=== PATIENT | female | born 1995 | race Caucasian/White ===

== ENCOUNTER 2018-07-02 11:10 | Day surgery (SDC) | payer BC ==
[~2018-07-02 11:10] MED LIST: CEFAZOLIN 2 GM-D5W BAG** 2 GM/50 ML ML IV ONE; Lactated Ringers 1,000 ML IV ONE; Lactated Ringers 1,000 ML IV SCH; Sensorcaine 0.25% 10 ML ONE
[2018-07-02] MEDS ORDERED: SUBLIMAZE 100 MCG/2 ML IV ONE (11:11)
[2018-07-02] MEDS ORDERED: Versed 2 MG/2 ML Injection IV ONE (11:11)
[2018-07-02] MEDS ORDERED: DIPRIVAN 200 MG/20 ML IV ONE (11:11)
[2018-07-02] MEDS ORDERED: TORAdol 30 mg Injection ONE (17:03)
[2018-07-02 18:05] VITALS: O2SAT 98
[2018-07-02 18:06] VITALS: BP 127/71; PULSE 65
--- NOTE | 2018-07-03 13:07 | OP ---
PROCEDURE DATE/TIME: 07/02/2018 1554 PREOPERATIVE DIAGNOSIS: Palpable right breast mass. POSTOPERATIVE DIAGNOSIS: Palpable right breast mass. PROCEDURE: Right breast lumpectomy. PROCEDURE PERFORMED BY: Sabi Flores M.D. ANESTHESIA: General. ESTIMATED BLOOD LOSS: Minimal, less than 10 cc. COMPLICATIONS: None. SPECIMEN: Right breast mass short superior, long lateral and medial anterior. 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 She has been worked up due to lesions in both breasts and she appears to have small slightly under 1 cm up to 2 cm lesions in both breasts which do not cause her any concern except for a lesion in the lateral aspect of her right breast which initially was smaller on her first ultrasound and biopsied as a fibroadenoma. However it grew significantly in size and she has noticed it more. We have discussed all the risks, benefits and alternatives of this and it does occupy quite a bit of space in her size breast. She would like for it to be excised after discussing all the risks, benefits and alternatives. She was seen in the preoperative area. The lesion is palpable. It was confirmed with her and marked while she was awake and alert. DESCRIPTION OF PROCEDURE: She was then brought back to the operative suite. Anesthesia induced. She was prepped and draped in usual sterile fashion. Complete time out performed. Correct site and markings as well as complete consent were verified on our time out. I then made a slightly curvilinear incision at the upper outer aspect of the right breast over the lesion at 10:00, this lesion is approximately 3 cm. We dissected down to skin, subcutaneous tissue into the breast tissue. Continued our dissection until we reached the layer immediately over the top of the lesion. I then encircled this lesion with a small rim of healthy breast tissue around this which I limited. The fibroadenomatous mass is lobulated. It is large in size as expected approximately 3 cm at least. I did completely encircle this and extracted it from the breast. We marked with a short superior long lateral medium stitch anterior and sent it to pathology. The wound pocket was irrigated thoroughly. Hemostasis was confirmed. We then closed with 3-0 Vicryl in interrupted fashion in the subcutaneous tissue and then a running 4-0 subcuticular monocryl stitch. Steri-Strips and sterile dressing. With our open wound I did thoroughly examine the breast. I did not feel any other lesions or concern through my incision as well. We then placed a breast binder and fluff. I discussed with her family all home instructions. She will also need bilateral breast ultrasound in approximately six months to confirm stability of her remaining lesions in bilateral breasts and she will be following up with me as an outpatient to discuss her final pathology report as well as to check her wound.
== END 2018-07-02 18:16 | disposition home or self-care (01) ==
LOC: SDC 11:10
PROVIDERS: ATTEND Surgery
DX: D24.1 Benign neoplasm of right breast (principal)
CPT/HCPCS: J0690; J1885; J2250; J2704; J3010

== ENCOUNTER 2018-07-06 12:49 | Emergency (ER) | payer BC ==
--- NOTE | 2018-07-06 13:15 | ERPHSYRPT ---
- History of Present Illness Time Seen by Provider: 07/06/18 13:11 Source: patient Patient Subjective Stated Complaint: pt here for pain to back of left leg for 2 days now, states it is an aching pain. pt also had a lumpectomy on monday to right breast Triage Nursing Assessment: pt alert, walked in, resp easy, skin w/d/p. has steri strips to right breast, no reddness or swelling, no reddness,warmth or swelling to left left Physician History: mild ache of the left lower leg for one day, no injury, no fever, ambulatory, no shortness of breath, pt refused pain med, hx recent right breast lumpectomy Allergies/Adverse Reactions: No Known Drug Allergies Allergy (Verified 07/06/18 13:06) Home Medications: No Reportable Medications [No Reported Medications] 06/21/18 [History] Hx Tetanus, Diphtheria Vaccination/Date Given: Yes Hx Influenza Vaccination/Date Given: Yes Hx Pneumococcal Vaccination/Date Given: No Immunizations Up to Date: Yes - Review of Systems Constitutional: No Fever Eyes: No Vision Changes Ears, Nose, & Throat: No Nose Congestion Respiratory: No Dyspnea Cardiac: No Chest Pain Abdominal/Gastrointestinal: No Abdominal Pain Musculoskeletal: No Back Pain, No Fall, No Injury Skin: No Rash Neurological: No Dizziness, No Focal Weakness - Past Medical History Pertinent Past Medical History: No Psycho-Social History: Anxiety, Attention Deficit Disorder, Depression - Past Surgical History Past Surgical History: Yes Female Surgical History: Lumpectomy - Social History Smoking Status: Never smoker Exposure to second hand smoke: No Drug Use: none Patient Lives Alone: No - Female History Hx Last Menstrual Period: may Hx Now: No - Nursing Vital Signs Nursing Vital Signs: Initial Vital Signs Temperature 97.5 F 07/06/18 13:01 Pulse Rate 65 07/06/18 13:01 Respiratory Rate 16 07/06/18 13:01 Blood Pressure 105/81 07/06/18 13:01 Pain Scale Pain Intensity 3 - Physical Exam General Appearance: no apparent distress Eyes, Ears, Nose, Throat Exam: moist mucous membranes Neck Exam: normal inspection Cardiovascular/Respiratory Exam: regular rate/rhythm Gastrointestinal/Abdominal Exam: non-tender Neuro/Tendon Exam: normal sensation Mental Status Exam: alert, oriented x 3, cooperative Skin Exam: normal color, warm, dry, other (tender left calf, no sts, sen and pulses intact, santy, no erythema or streaks) - Course Nursing assessment & vital signs reviewed: Yes - Radiology Ultrasound Exam Venous Lower Extremity Ultrasound: discussed w/radiologist, Other (no dvt) Ordered Tests: Active Orders 24 hr Category Date Time Status VENOUS UNILAT/LIMITED EXTREMIT [US] Stat Exams 07/06/18 13:33 Completed CBC W DIFF Stat Lab 07/06/18 13:40 Completed CK-Creatinine Phosphokinase Stat Lab 07/06/18 13:40 Completed CMP Stat Lab 07/06/18 13:40 Completed D-DIMER QUANTITATION Stat Lab 07/06/18 13:40 Completed Lab/Rad Data: Laboratory Result Diagrams 07/06/18 13:40 07/06/18 13:40 Laboratory Results 07/06/18 07/06/18 07/06/18 Range/Units 13:40 13:40 13:40 WBC 8.5 (4.0-10.5) K/mm3 RBC 4.09 L (4.1-5.4) M/mm3 Hgb 11.7 L (12.0-16.0) gm/dl Hct 35.0 (35-47) % MCV 85.6 (78-100) fl MCH 28.6 (26-32) pg MCHC 33.4 (32-36) g/dl RDW 12.8 (11.5-14.0) % Plt Count 205 (150-450) K/mm3 MPV 11.8 H (6-9.5) fl Gran % 64.7 (36.0-66.0) % Eos # (Auto) 0.11 (0-0.5) Absolute Lymphs (auto) 1.88 (1.0-4.6) Absolute Monos (auto) 1.00 (0.0-1.3) Lymphocytes % 22.1 L (24.0-44.0) % Monocytes % 11.8 (0.0-12.0) % Eosinophils % 1.3 (0.00-5.0) % Basophils % 0.1 (0.0-0.4) % Absolute Granulocytes 5.49 (1.4-6.9) Basophils # 0.01 (0-0.4) D-Dimer 296 (215-500) ng/mL Sodium 141 (137-145) mmol/L Potassium 4.0 (3.5-5.1) mmol/L Chloride 104 (98-107) mmol/L Carbon Dioxide 27 (22-30) mmol/L Anion Gap 14.7 (5-15) MEQ/L BUN 8 (7-17) mg/dL Creatinine 0.62 (0.52-1.04) mg/dL Estimated GFR > 60.0 ML/MIN Glucose 80 (74-106) mg/dL Calcium 9.7 (8.4-10.2) mg/dL Total Bilirubin 0.40 (0.2-1.3) mg/dL AST 27 (14-36) U/L ALT 10 (0-35) U/L Alkaline Phosphatase 42 (38-126) U/L Creatine Kinase 27 L (30-135) U/L Serum Total Protein 7.3 (6.3-8.2) g/dL Albumin 4.3 (3.5-5.0) g/dL - Progress Progress: unchanged Progress Note: 07/06/18 14:50 see your doctor, return if worse, motrin, differential includes muscle strain - Departure Departure Disposition: Home Clinical Impression: Leg pain Qualifiers: Laterality: left Qualified Code(s): M79.605 - Pain in left leg Condition: Stable Critical Care Time: No Referrals: MELANY BELL [Primary Care Provider] -
--- NOTE | 2018-07-06 13:53 | XRAY ---
Indication: Left leg pain following surgery 5 days ago. Two-dimensional sonogram and color Doppler imaging of the major venous vessels of the left leg was performed. Comparison: None No thrombus seen in the examined deep venous vessels of the left leg including greater saphenous vein. Veins demonstrate normal compressibility. Venous waveforms are normal with and without augmentation. Impression: Left leg negative for DVT.
[2018-07-06 14:12] VITALS: BP 99/52; PULSE 58; O2SAT 98
[2018-07-06 14:15] LABS: BASOPHIL % 0.1 % (0.0-0.4); Basophil (Absolute #) 0.01 (0-0.4); Eosinophil % 1.3 % (0.00-5.0); Eosinophil (Absolute #) 0.11 (0-0.5); Granulocyte Absolute (ANC) 5.49 (1.4-6.9); Granulocytes % 64.7 % (36.0-66.0); Hemoglobin 11.7 gm/dl (12.0-16.0); Lymphocyte (Absolute #) 1.88 (1.0-4.6); Lymphocytes % 22.1 % (24.0-44.0); Mean Cell Volume 85.6 fl (78-100); Mean Corpuscular Hemoglobin 28.6 pg (26-32); Mean Corpuscular Hgb Concent. 33.4 g/dl (32-36); Mean Platelet Volume 11.8 fl (6-9.5); Monocytes % 11.8 % (0.0-12.0); Platelet Count 205 K/mm3 (150-450); Red Blood Count 4.09 M/mm3 (4.1-5.4); Red Cell Distribution Width 12.8 % (11.5-14.0); White Blood Count 8.5 K/mm3 (4.0-10.5)
[2018-07-06 14:19] LABS: ALBUMIN 4.3 g/dL (3.5-5.0); ALKALINE PHOSPHATASE 42 U/L (38-126); ANION GAP 14.7 MEQ/L (5-15); BLOOD UREA NITROGEN 8 mg/dL (7-17); CHLORIDE 104 mmol/L (98-107); CK-Creatinine Phosphokinase 27 U/L (30-135); Calcium 9.7 mg/dL (8.4-10.2); Carbon Dioxide 27 mmol/L (22-30); Creatinine 1 0.62 mg/dL (0.52-1.04); Glucose 80 mg/dL (74-106); SGOT/AST 27 U/L (14-36); SGPT/ALT 10 U/L (0-35); SODIUM 141 mmol/L (137-145); Total Protein 7.3 g/dL (6.3-8.2)
== END 2018-07-06 15:10 | disposition home or self-care (01) ==
LOC: ED 12:49
DX: M79.605 Pain in left leg (principal)
CPT/HCPCS: 36415; 80053; 82550; 85025; 85379; 93971; 99283